=== PATIENT | female | born 1960 | race Caucasian/White ===

== ENCOUNTER 2016-10-20 22:42 | Emergency (ER) | payer BC ==
[2016-10-20 22:57] VITALS: RESP 18
[2016-10-20] MEDS ORDERED: OXYMETAZOLINE 0.05% NASL SPRAY 15 ML NASAL STA (23:21)
--- NOTE | 2016-10-20 23:23 | ED ---
General Adult HPI - General Chief complaint: ENT Stated complaint: nose bleed Time Seen by Provider: 10/20/16 23:00 Source: patient, RN notes reviewed Mode of arrival: ambulatory Limitations: no limitations - History of Present Illness Initial comments: Patient is a pleasant 56-year-old female presenting to the emergency Department with complaints of epistaxis. Onset was around 4:00 while blowing her nose. Patient has had intermittent bleeding since that time. No lightheadedness or dyspnea or weakness. No history of chronic nosebleeds. No bleeding from other areas. Patient denies any trauma. Patient does not take blood thinners. - Related Data Home Medications Medication Instructions Recorded Confirmed ALPRAZolam [Xanax] 0.25 mg PO BID PRN 10/20/16 10/20/16 Atorvastatin [Lipitor] 40 mg PO HS 10/20/16 10/20/16 Cetirizine HCl [Zyrtec] 10 mg PO DAILY 10/20/16 10/20/16 Ergocalciferol (Vitamin D2) 50,000 unit PO SA 10/20/16 10/20/16 [Vitamin D2] Fenofibrate Nanocrystallized 145 mg PO Q48H 10/20/16 10/20/16 [[place]] Levothyroxine Sodium [Synthroid] 100 mcg PO DAILY 10/20/16 10/20/16 Lisinopril-Hctz 20-25 mg 1 tab PO DAILY 10/20/16 10/20/16 [Zestoretic 20-25] Metoprolol Tartrate [Lopressor] 25 mg PO BID 10/20/16 10/20/16 Sodium Chloride [[place]] 1 spray EA NOSTRIL DAILY PRN 10/20/16 10/20/16 Vitamin B Complex 1 cap PO DAILY 10/20/16 10/20/16 Previous Rx's Medication Instructions Recorded Cephalexin [Keflex] 250 mg PO Q8HR #15 capsule 10/21/16 Allergies Allergy/AdvReac Type Severity Reaction Status Date / Time codeine Allergy Dyspnea Verified 10/20/16 23:08 morphine Allergy Dyspnea Verified 10/20/16 23:08 Review of Systems ROS Statement: Those systems with pertinent positive or pertinent negative responses have been documented in the HPI. ROS Other: All systems not noted in ROS Statement are negative. Constitutional: Denies: fever Eyes: Denies: eye pain ENT: Reports: epistaxis. Denies: ear pain Respiratory: Denies: dyspnea Cardiovascular: Denies: chest pain Endocrine: Denies: fatigue Gastrointestinal: Denies: abdominal pain Genitourinary: Denies: dysuria Musculoskeletal: Denies: back pain Skin: Denies: rash Neurological: Denies: headache Past Medical History Past Medical History: Hyperlipidemia, Hypertension, Thyroid Disorder History of Any Multi-Drug Resistant Organisms: None Reported Past Surgical History: Hysterectomy Past Psychological History: No Psychological Hx Reported Smoking Status: Former smoker Past Alcohol Use History: None Reported Past Drug Use History: None Reported General Exam Limitations: no limitations General appearance: alert, in no apparent distress Head exam: Present: atraumatic Eye exam: Present: normal appearance, PERRL ENT exam: Present: normal oropharynx, other (Minimal blood left anterior nares.) Neck exam: Present: normal inspection Respiratory exam: Present: normal lung sounds bilaterally Cardiovascular Exam: Present: regular rate, normal rhythm GI/Abdominal exam: Present: soft. Absent: tenderness Extremities exam: Present: normal inspection Neurological exam: Present: alert Psychiatric exam: Present: normal affect, normal mood Skin exam: Absent: rash Course Vital Signs 10/20/16 10/21/16 22:53 00:13 Temperature 98.0 F 97.3 F L Pulse Rate 104 H 89 Respiratory 18 18 Rate Blood Pressure 172/77 144/78 O2 Sat by Pulse 100 97 Oximetry - Reevaluation(s) Reevaluation #1: 10/20/16 23:22 Patient strongly requests cautery. Procedures - Procedures Initial comment: Epistaxis: Left nares had mild blood. Afrin sprayed and silver nitrate cautery. Despite this patient still had minimal bleeding. Unable to identify site. Posterior Rhino Rocket placed with hemostasis. Disposition Clinical Impression: Posterior epistaxis Disposition: HOME SELF-CARE Condition: Stable Instructions: Nosebleed (ED) Additional Instructions: Please follow-up with ENT in 3-5 days for packing removal and reevaluation. Return for bleeding, bleeding from other sites, worsening symptoms or other concerns. Prescriptions: Cephalexin [Keflex] 250 mg PO Q8HR #15 capsule Referrals: Lula Mart MD [Primary Care Provider] - 1-2 days Torey Helton DO [Doctor of Osteopathic Medicine] - 1-2 days Time of Disposition: 00:20
[2016-10-21 00:14] VITALS: BP 144/78; PULSE 89; TEMP 97.3
[2016-10-21] MEDS ORDERED: ONDANSETRON ODT 4 MG TAB PO STA (00:20)
== END 2016-10-21 00:35 | disposition home or self-care (01) ==
LOC: EC 22:42
DX: R04.0 Epistaxis (principal); E78.5 Hyperlipidemia, unspecified; I10 Essential (primary) hypertension; E07.9 Disorder of thyroid, unspecified; Z87.891 Personal history of nicotine dependence; Z79.899 Other long term (current) drug therapy; Z88.5 Allergy status to narcotic agent
CPT/HCPCS: 30905; 99283

== ENCOUNTER → 2018-03-21 | Outpatient (CLI) | payer OTHER ==
--- NOTE | 2018-03-21 13:56 | XR ---
EXAMINATION TYPE: XR cervical spine comp DATE OF EXAM: 03/21/2018 COMPARISON: NONE HISTORY: pain TECHNIQUE: Four views are submitted. FINDINGS: The odontoid is intact. There are no compression deformities. The prevertebral soft tissue structur es are within normal limits. Calcification the soft tissue the left neck likely related to carotid a rteries. There is loss of the normal cervical lordosis with multilevel degenerative disc disease, hyp ertrophic changes and facet arthropathy. 2 mm retrolisthesis of C5 relative to C6, C2 relative to C3, C3 relative to C4, and C4 relative to C5. Multilevel foraminal encroachment suggested. IMPRESSION: 1. Loss the normal cervical lordosis with multilevel degenerative disc disease and facet arthropathy. Recommend follow-up MRI with multilevel foraminal encroachment noted as well as suspected multilevel anterolisthesis as discussed above.
--- NOTE | 2018-03-21 13:57 | XR ---
EXAMINATION TYPE: XR shoulder complete LT DATE OF EXAM: 03/21/2018 COMPARISON: NONE HISTORY: Pain TECHNIQUE: Three views are submitted. FINDINGS: The osseous structures are intact. There is no acute fracture or dislocation. Arthropathy of the AC joint IMPRESSION: 1. No acute process.
== END | disposition home or self-care (01) ==
LOC: RADXRYALE 13:19
PROVIDERS: ATTEND Internal Medicine
DX: M54.2 Cervicalgia (principal); M25.512 Pain in left shoulder
CPT/HCPCS: 72050

== ENCOUNTER → 2020-05-01 | Outpatient (CLI) | payer MEDICAID, OTHER | END | disposition home or self-care (01) | LOC: LABWHC1 08:24 | PROVIDERS: ATTEND Internal Medicine | DX: J40 Bronchitis, not specified as acute or chronic (principal) | CPT/HCPCS: U0003; C9803 ==

== ENCOUNTER → 2020-07-11 | Outpatient (CLI) | payer MEDICAID ==
--- NOTE | 2020-07-12 10:46 | ECHOF ---
Referral Reason:R01.1 Cardiac Murmur MEASUREMENTS -------- HEIGHT: 160.0 cm WEIGHT: 80.3 kg BP: RVIDd: 2.8 cm (< 3.3) IVSd: 0.7 cm (0.6 - 1.1) LVIDd: 5.1 cm (3.9 - 5.3) LVPWd: 1.1 cm (0.6 - 1.1) IVSs: 1.0 cm LVIDs: 3.5 cm LVPWs: 1.2 cm LA Diam: 4.0 cm (2.7 - 3.8) LAESV Index (A-L): 24.19 ml/m Ao Diam: 2.4 cm (2.0 - 3.7) AV Cusp: 1.6 cm (1.5 - 2.6) MV EXCURSION: 18.048 mm (> 18.000) MV EF SLOPE: 95 mm/s (70 - 150) EPSS: 0.3 cm MV E Kendall: 0.64 m/s MV DecT: 213 ms MV A Kendall: 0.70 m/s MV E/A Ratio: 0.92 RAP: 5.00 mmHg RVSP: 22.18 mmHg FINDINGS -------- Sinus rhythm. This was a technically adequate study. The left ventricular size is normal. There is mild concentric left ventricular hypertrophy. Overa ll left ventricular systolic function is normal with, an EF between 55 - 60 %. The diastolic fillin g pattern is normal for the age of the patient 7.81. The right ventricle is normal in size. Normal LA size by volume 22+/-6 ml/m2. The right atrial size is normal. The aortic valve is trileaflet, and appears structurally normal. No aortic stenosis or regurgitation. The mitral valve is normal. Mild mitral regurgitation is present. The tricuspid valve appears structurally normal. Mild tricuspid regurgitation present. Right vent ricular systolic pressure is normal at < 35 mmHg. There is no pulmonic regurgitation present. The aortic root size is normal. There is no pericardial effusion. CONCLUSIONS -------- 1. There is mild concentric left ventricular hypertrophy. 2. Overall left ventricular systolic function is normal with, an EF between 55 - 60 %. 3. Normal LA size by volume 22+/-6 ml/m2. 4. The aortic valve is trileaflet, and appears structurally normal. No aortic stenosis or regurgitati on. 5. Mild mitral regurgitation is present. 6. Mild tricuspid regurgitation present. GUT DROPPER: Leta Martinez RDCS
== END | disposition home or self-care (01) ==
LOC: RADECHMAIN 12:38
PROVIDERS: ATTEND Internal Medicine
DX: I08.1 Rheumatic disorders of both mitral and tricuspid valves (principal)
CPT/HCPCS: 93306

== ENCOUNTER → 2020-07-16 | Outpatient (CLI) | payer MEDICAID ==
--- NOTE | 2020-08-12 10:36 | MM ---
Reason for exam: screening (asymptomatic). Last mammogram was performed 5 years ago. History: Patient is postmenopausal. Physical Findings: A clinical breast exam by your physician is recommended on an annual basis and results should be correlated with mammographic findings. MG 3D Screening Mammo W/Cad Bilateral CC and MLO view(s) were taken. Prior study comparison: July 02, 2015, mammogram. September 23, 2012, mammogram. The breast tissue is heterogeneously dense. This may lower the sensitivity of mammography. Central left CC asymmetric density does not persist on 3D. No significant changes when compared with prior studies. ASSESSMENT: Benign, BI-RAD 2 RECOMMENDATION: Routine screening mammogram of both breasts in 1 year.
== END | disposition home or self-care (01) ==
LOC: RADMAMWWP 11:05
PROVIDERS: ATTEND Internal Medicine
DX: Z12.31 Encounter for screening mammogram for malignant neoplasm of breast (principal)
CPT/HCPCS: 77063; 77067

== ENCOUNTER 2021-07-25 12:49 | Emergency (ER) | payer MEDICAID ==
[2021-07-25 14:55] VITALS: TEMP 98.4
--- NOTE | 2021-07-25 15:11 | XR ---
EXAMINATION TYPE: XR Hip Complete LT DATE OF EXAM: 07/25/2021 COMPARISON: NONE HISTORY: Pain TECHNIQUE: 2 views submitted FINDINGS: There is no evidence of erosive change or acute fracture. Mild arthropathy and hypertrophic change of the acetabulum. IMPRESSION: 1. Arthropathy correlate for femoral acetabular impingement. No definite acute fracture. There is a s light deformity of the superior margin of the report femoral neck. If there is history of trauma kecia elate with CT scan..
[2021-07-25] MEDS ORDERED: KETOROLAC 15 MG/ML 1 ML VIAL IM STA (18:25)
--- NOTE | 2021-07-25 18:32 | ED ---
General Adult HPI - General Chief complaint: Extremity Injury, Lower Stated complaint: Hip pain Time Seen by Provider: 07/25/21 18:03 Source: patient Mode of arrival: ambulatory Limitations: no limitations - History of Present Illness Initial comments: 61-year-old female presents to the emergency room for a chief complaint left hip pain. Patient states about 3 weeks ago she went to stand up and felt a pop in her hip. Patient states the pain wraps around her groin and through the side of her hip. States it is painful to walk on. States sometimes pain shoots down to her foot.Patient has no other complaints at this time including shortness of breath, chest pain, abdominal pain, nausea or vomiting, headache, or visual changes. - Related Data Home Medications Medication Instructions Recorded Confirmed ALPRAZolam [Xanax] 0.25 mg PO BID 10/20/16 07/25/21 Cetirizine HCl [Zyrtec] 10 mg PO DAILY 10/20/16 07/25/21 Ergocalciferol (Vitamin D2) 50,000 unit PO SA 10/20/16 07/25/21 [Vitamin D2] Lisinopril-Hctz 20-25 mg 1 tab PO DAILY 10/20/16 07/25/21 [Zestoretic 20-25] Metoprolol Tartrate [Lopressor] 25 mg PO BID 10/20/16 07/25/21 Levothyroxine Sodium [Synthroid] 125 mcg PO DAILY 07/25/21 07/25/21 Pravastatin Sodium [Pravachol] 40 mg PO DAILY 07/25/21 07/25/21 Previous Rx's Medication Instructions Recorded HYDROcodone/APAP 5-325MG [[place] 1 tab PO Q6HR PRN #10 tab 07/25/21 5-325] Allergies Allergy/AdvReac Type Severity Reaction Status Date / Time codeine Allergy Dyspnea Verified 07/25/21 19:05 morphine Allergy Dyspnea Verified 07/25/21 19:05 Review of Systems ROS Statement: Those systems with pertinent positive or pertinent negative responses have been documented in the HPI. ROS Other: All systems not noted in ROS Statement are negative. Past Medical History Past Medical History: Hyperlipidemia, Hypertension, Thyroid Disorder History of Any Multi-Drug Resistant Organisms: None Reported Past Surgical History: Hysterectomy Past Psychological History: No Psychological Hx Reported Smoking Status: Former smoker Past Alcohol Use History: None Reported Past Drug Use History: None Reported General Exam Limitations: no limitations General appearance: alert, in no apparent distress Head exam: Present: atraumatic Eye exam: Present: normal appearance, PERRL, EOMI. Absent: scleral icterus, conjunctival injection ENT exam: Present: normal exam, mucous membranes moist Neck exam: Present: normal inspection, full ROM. Absent: tenderness Respiratory exam: Present: normal lung sounds bilaterally. Absent: respiratory distress, wheezes Cardiovascular Exam: Present: regular rate, normal rhythm, normal heart sounds GI/Abdominal exam: Present: soft, normal bowel sounds. Absent: distended, tenderness Extremities exam: Present: tenderness (Mild tenderness of the lateral left hip.), normal capillary refill (Capillary refill less than 2 seconds left lower extremity, DP pulse 2+.), other (sensation intact of lower extremity.). Absent: full ROM (90 flexion of the left hip, extension to a neutral position.) Course Vital Signs 07/25/21 14:51 Temperature 98.4 F Pulse Rate 77 Respiratory 16 Rate Blood Pressure 131/84 O2 Sat by Pulse 100 Oximetry Medical Decision Making - Medical Decision Making vitals are stable. HPI and physical exam as documented. CT is recommended after x-ray shows arthropathy correlated for femoral acetabular impingement as well as a slight deformity of the superior margin of the femoral neck.CT showed no evidence of fracture or dislocation but there are mild osteoarthritic changes of the left hip with [place] deformity of the femoral head. Patient given Toradol. Does not want any other pain medication here in the emergency room. We will send her home with a small prescription for pain medication. She will follow up with orthopedics, referral given. She was given a shot for crutches. She will return here for any worsening symptoms. Disposition Clinical Impression: Hip pain, Osteoarthritis of left hip Narrative: CAM deformity Disposition: HOME SELF-CARE Condition: Good Instructions (If sedation given, give patient instructions): Hip Pain (ED) Additional Instructions: Please take Tylenol for pain. If pain is severe take [place] but do not drive or operate machinery while taking this. Call orthopedics first thing Wednesday morning to follow up. Return to the emergency room for any worsening symptoms. Prescriptions: HYDROcodone/APAP 5-325MG [[place] 5-325] 1 tab PO Q6HR PRN #10 tab PRN Reason: Pain Is patient prescribed a controlled substance at d/c from ED?: Yes When asked, does pt state using other controlled substances?: No If prescribed controlled substance>3 days was MAPS reviewed?: Prescribed <3 Days If opioid is for acute pain is fill amount 7 days or less?: Yes If Rx opioid, was Start Talking consent form obtained?: Yes Referrals: Lula Mart MD [Primary Care Provider] - 1-2 days Hannah Rojas DO [Doctor of Osteopathic Medicine] - 1-2 days Time of Disposition: 19:45
--- NOTE | 2021-07-25 19:12 | CT ---
EXAMINATION TYPE: CT hip LT wo con CT DLP: 844.4 mGycm, Automated exposure control for dose reduction was used. DATE OF EXAM: 07/25/2021 7:03 PM COMPARISON: Radiograph same day. CLINICAL INDICATION:Female, 61 years old with history of pain, left hip pain, no injury TECHNIQUE: Axial images were obtained of the left hip without the use of IV contrast. Additional cor onal and sagittal reformatted images and soft tissue and bone window were obtained for review. 3-D re construction was created on a separate workstation. FINDINGS: There is no evidence of fracture, subluxation, or dislocation. Minimal superior acetabular sclerosis noted. CAM deformity of the femoral noted. No significant soft tissue swelling or joint eff usion is identified. No focal muscular atrophy or edema is identified. No radiopaque foreign body nica ntified. Multilevel degenerative disc disease changes are seen throughout the visualized spine. IMPRESSION: 1. No evidence of fracture or dislocation. 2. Mild osteoarthritic changes of the left hip with CAM deformity of the femoral head.
[2021-07-25 19:59] VITALS: BP 128/81; PULSE 78; RESP 18
== END 2021-07-25 19:57 | disposition home or self-care (01) ==
LOC: EC 12:49
DX: M16.12 Unilateral primary osteoarthritis, left hip (principal); E78.5 Hyperlipidemia, unspecified; I10 Essential (primary) hypertension; E07.9 Disorder of thyroid, unspecified; Z88.5 Allergy status to narcotic agent; Z90.710 Acquired absence of both cervix and uterus; Z87.891 Personal history of nicotine dependence
CPT/HCPCS: 99284; 96372; 73502; 73700; J1885

== ENCOUNTER → 2021-08-06 | Outpatient (CLI) | payer MEDICAID | END | disposition home or self-care (01) | LOC: LABWHC1 12:07 | PROVIDERS: ATTEND Internal Medicine | DX: Z20.822 Contact with and (suspected) exposure to COVID-19 (principal); R51.9 Headache, unspecified; R07.0 Pain in throat | CPT/HCPCS: U0003; C9803 ==

== ENCOUNTER → 2021-09-05 | Outpatient (CLI) | payer MEDICAID ==
[2021-09-05 15:28] LABS: Appearance,Urine Clear (Clear); Bilirubin,Urine Negative (Negative); Blood,Urine Negative (Negative); Color,Urine Yellow; Glucose,Urine (UA) Negative (Negative); Ketones,Urine Negative (Negative); Leukocyte Esterase,Urine Negative (Negative); Nitrite,Urine Negative (Negative); Protein,Urine Negative (Negative); Specific Gravity,Urine 1.018 (1.001-1.035); Urobilinogen,Urine <2.0 mg/dL (<2.0)
[2021-09-05 16:08] LABS: INR 0.9 (<1.2); Partial Thromboplastin Time 22.6 sec (22.0-30.0); Prothrombin Time 10.2 sec (9.0-12.0)
[2021-09-05 18:05] LABS: HCT 37.2 % (37.2-46.3); HGB 12.1 g/dL (12.0-15.0); MCH 29.4 pg (27.0-32.0); MCHC 32.5 g/dL (32.0-37.0); MCV 90.5 fL (80.0-97.0); Mean Platelet Volume 11.1 fL (9.5-12.2); Platelet Count 278 X 10*3/uL (140-440); RBC 4.11 X 10*6/uL (4.10-5.20); RDW 11.4 % (11.5-14.5); WBC 8.59 X 10*3/uL (4.50-10.00)
[2021-09-05 18:53] LABS: African American GFR (CKD) 115.6 (60.0-200.0); Albumin 4.8 g/dL (3.8-4.9); Albumin/Globulin Ratio 2.4 (1.60-3.17); Anion Gap 14.9 mmol/L (10.00-18.00); BUN/Creat Ratio 27.17 Ratio (12.00-20.00); Blood Urea Nitrogen 16.3 mg/dL (9.0-27.0); Calcium 9.8 mg/dL (8.7-10.3); Carbon Dioxide 23.1 mmol/L (20.0-27.5); Non-African American GFR(CKD) 99.8 (60.0-200.0); Potassium 4.1 mmol/L (3.5-5.5); Total Bilirubin 0.4 mg/dL (0.30-1.20); Total Protein 6.8 g/dL (6.2-8.2)
== END | disposition home or self-care (01) ==
LOC: LABWHC1 13:37
PROVIDERS: ATTEND Orthopaedic Surgery
DX: Z01.818 Encounter for other preprocedural examination (principal); M16.12 Unilateral primary osteoarthritis, left hip
CPT/HCPCS: 36415; 80053; 81003; 85027; 85610; 85730; 87070; 93005

== ENCOUNTER → 2021-11-10 | Outpatient (CLI) | payer MEDICAID ==
[2021-11-10 12:48] LABS: INR 0.9 (<1.2); Partial Thromboplastin Time 24.1 sec (22.0-30.0); Prothrombin Time 10.1 sec (9.0-12.0)
[2021-11-10 18:07] LABS: HCT 37.5 % (37.2-46.3); HGB 12.5 g/dL (12.0-15.0); MCH 29.8 pg (27.0-32.0); MCHC 33.3 g/dL (32.0-37.0); MCV 89.5 fL (80.0-97.0); Mean Platelet Volume 10.5 fL (9.5-12.2); NRBC Per 100 WBC 0 /100 WBCS (0.0-0.0); Platelet Count 268 X 10*3/uL (140-440); RBC 4.19 X 10*6/uL (4.10-5.20); RDW 11.5 % (11.5-14.5); WBC 8.69 X 10*3/uL (4.50-10.00)
[2021-11-10 20:17] LABS: African American GFR (CKD) 115.6 (60.0-200.0); Albumin 4.9 g/dL (3.8-4.9); Albumin/Globulin Ratio 2.13 (1.60-3.17); Anion Gap 16.1 mmol/L (10.00-18.00); BUN/Creat Ratio 24.5 Ratio (12.00-20.00); Blood Urea Nitrogen 14.7 mg/dL (9.0-27.0); Calcium 9.9 mg/dL (8.7-10.3); Carbon Dioxide 20.9 mmol/L (20.0-27.5); Globulin 2.3 g/dL (1.6-3.3); Non-African American GFR(CKD) 99.8 (60.0-200.0); Potassium 3.6 mmol/L (3.5-5.5); Total Bilirubin 0.4 mg/dL (0.30-1.20); Total Protein 7.2 g/dL (6.2-8.2)
[2021-11-10 20:44] LABS: Appearance,Urine Clear (Clear); Bilirubin,Urine Negative (Negative); Blood,Urine Negative (Negative); Color,Urine Yellow (Yellow); Ketones,Urine Negative (Negative); Nitrite,Urine Negative (Negative); Specific Gravity,Urine 1.012 (1.001-1.030); Urobilinogen,Urine 0.2 (0.2,1.0)
== END | disposition home or self-care (01) ==
LOC: LABPAT 11:01
PROVIDERS: ATTEND Orthopaedic Surgery
DX: Z01.812 Encounter for preprocedural laboratory examination (principal)
CPT/HCPCS: 80053; 81003; 85027; 85610; 85730; 87070

== ENCOUNTER 2021-11-21 09:16 | Day surgery (SDC) | payer MEDICAID ==
[2021-11-19 15:41] VITALS: BMI 31.8
[~2021-11-21 09:16] MED LIST: ACETAMINOPHEN TAB 500 MG TAB PO PRN; DEXAMETHASONE SOD PHOSPHATE 10 MG/ML 1 ML VIAL IV PRN; DOCUSATE 100 MG CAP PO PRN; FAMOTIDINE 20 MG/2 ML VIAL IVP PRN; KETOROLAC 15 MG/ML 1 ML VIAL IVP PRN; LACTATED RINGERS 1,000 ML IV SCH; MIDAZOLAM 2 MG/2 ML VIAL IV PRN; ONDANSETRON 4 MG/2 ML VIAL IVP PRN; TRANEXAMIC ACID 1,000 MG in SODIUM CHLORIDE 0.9% 100 ML IVPB ONE; TRANEXAMIC ACID IN NACL,ISO-OS 1,000 MG in SALINE 1 100ML.BAG IVPB PRN; oxyCODONE ER 10 MG TAB.ER.12H PO PRN
[2021-11-21 10:24] LABS: Glucose,Whole Blood 113 mg/dL (75-99)
[2021-11-21] MEDS ORDERED: DEXAMETHASONE SOD PHOSPHATE 4 MG/ML 1 ML VIAL IVP ONE (10:29)
[2021-11-21] MEDS ORDERED: MIDAZOLAM 2 MG/2 ML VIAL ONE (11:00)
[2021-11-21] MEDS ORDERED: PROPOFOL 10 MG/ML 20 ML VIAL IV ONE (11:00)
[2021-11-21] MEDS ORDERED: NEOSTIGMINE 1 MG/ML 10 ML VIAL ONE (11:00)
[2021-11-21] MEDS ORDERED: PHENYLEPHRINE-0.9% NACL SYG 1,000 MCG/10 ML SYRINGE ONE (11:00)
[2021-11-21] MEDS ORDERED: TRANEXAMIC ACID IN NACL,ISO-OS 1,000 MG/100 ML BAG ONE (11:00)
[2021-11-21] MEDS ORDERED: fentaNYL (PF) 50 MCG/ML 2 ML AMP ONE (11:00)
[2021-11-21] MEDS ORDERED: LIDOCAINE 1% INJ 10MG/ML (20 ML MDV) ONE (11:00)
[2021-11-21] MEDS ORDERED: GLYCOPYRROLATE 0.2 MG/ML 2 ML VIAL ONE (11:00)
[2021-11-21] MEDS ORDERED: SUCCINYLCHOLINE CHLORIDE 100 MG/5 ML SYR IV ONE (11:00)
[2021-11-21] MEDS ORDERED: ROCURONIUM 10 MG/ML (5 ML VIAL) IV ONE (11:00)
[2021-11-21] MEDS: ROPIVACAINE/EPI/CLONIDINE/KET 50 ML SYRINGE MISCELLANE PRN ×2 (11:09→13:02)
--- NOTE | 2021-11-21 13:28 | XR ---
EXAMINATION TYPE: XR Hip Limited LT DATE OF EXAM: 11/21/2021 COMPARISON: NONE HISTORY: Postop TECHNIQUE: One view submitted. FINDINGS: There is postsurgical change in near anatomic alignment. There is soft tissue edema and emphysema. IMPRESSION: 1. Postoperative change. Appears in near-anatomic alignment.
--- NOTE | 2021-11-21 13:29 | FL ---
EXAMINATION TYPE: FL guidance operating room DATE OF EXAM: 11/21/2021 HISTORY: Fluoroscopy time 1 minute and 15 seconds of fluoroscopy provided. IMPRESSION: 1. Fluoroscopy time.
--- NOTE | 2021-11-21 13:39 | P.OP ---
Date of Procedure: 11/21/21 Preoperative Diagnosis: Left hip avascular necrosis Postoperative Diagnosis: Left hip avascular necrosis Procedure(s) Performed: Left direct anterior total hip arthroplasty Implants: 1. Left Hand Trident II 52 mm cup 2. Stef Accolade II size #3 127-deg Femoral Stem 3. Dual mobility Head 42-OD, 28-ID -4 mm Anesthesia: GETA Surgeon: Mark Anthony Willson Vp Production #1: Cristopher Scherer Estimated Blood Loss (ml): 200 IV fluids (ml): 1,200 Pathology: other (Femoral head to pathology) Condition: stable Disposition: PACU Indications for Procedure: The patient developed avascular necrosis of the left femoral head with collapse. She had intractable pain and difficulty walking. She had both x-ray and MRI findings showing avascular necrosis and collapse. I recommended a total hip arthroplasty. I had a long discussion with the patient in the office on the potential risks and complications of an elective total hip replacement through a direct anterior approach. Risks discussed include, but are certainly not limited to, risks from anesthesia, superficial infection requiring local wound care or antibiotics, deep roxanne-prosthetic joint infection and the treatment required to eradicate infection, intraoperative fracture, postoperative periprosthetic fracture, damage to local blood vessels or nerves particularly the lateral femoral cutaneous nerve, delayed wound healing requiring local wound care or possibly surgical debridement, hip dislocation, leg length discrepancy, soft tissue irritation around the total hip implant such as iliopsoas tendinitis or trochanteric bursitis, wear and osteolysis from the implants, squeaking or audible noises, groin pain, thigh pain, heterotopic ossification, stiffness, aseptic loosening of the implants, dissatisfaction with surgical outcome, need for revision surgery, DVT, PE, swelling of the operative extremity, acute coronary event, stroke, failure to thrive, and possibly loss of life or limb. The patient understands that while these are the most common complications after an elective hip replacement there are certainly other less common complications possible. They were given ample time to ask questions regarding the potential complications of a hip replacement. Following our discussion the patient provided their verbal and written consent to go forward with an elective total hip replacement. Operative Findings: Avascular necrosis with collapse of the left femoral head. There was a large delaminated piece of cartilage in the hip joint and a large effusion. Description of Procedure: The patient was identified in the preoperative holding area and the correct hip was marked with my initials. I reviewed the procedure and consent with the patient. All of their questions were answered. The patient was then brought back into the operating room by anesthesia. While on the [facility] anesthesia was administered by the anesthesia team. Preoperative antibiotics and tranexamic acid were also given. After the patient was under anesthesia I examined their ankles to determine their preoperative leg length discrepancy. The skin over the anterior aspect of the hip was shaved to remove hair over the site of planned incision. Both feet and ankles were padded with webril and boots for the [place] were applied. The patient was then carefully transferred onto the [place] table. A perineal post was immediately placed. The arms were placed on arm holders and were well-padded. Both boots were secured to the spars on the [place] table. The patient was positioned so that the pelvis was centered over the post. Nonsterile drapes were applied. A timeout was performed identifying the correct patient, operative extremity, and procedure. At this point fluoroscopy was brought in to take preoperative images of the pelvis and operative hip. Using the standing AP pelvis from the office as a template, a comparable image was obtained with fluoroscopy. A metallic bar was used to create a bi-ischial line for use as a reference to leg length adjustments during the procedure. Global offset was also measured on both the operative and nonoperative leg. Fluoroscopy was then brought out and a pre-scrub using a chlorhexidine scrub brush was performed. The operative limb was then prepped and draped in the standard sterile fashion. An anterior longitudinal incision was made lateral and distal to the ASIS. The skin and subcutaneous tissues were incised sharply. The underlying tensor fascia was identified and incised in its midportion. The fascia was dissected free from the underlying muscle and the muscle belly was retracted. A blunt tipped cobra retractor was placed over the superior neck under the muscle fibers of the gluteus minimus. The deep enveloping fascia of the tensor was incised. The anterior leash of vessels were then identified and cauterized. The fascia between the rectus and the capsule was then incised and the pre-capsular fat was excised. A second Cobra was placed inferior to the neck. The interval between the rectus and iliocapsularis and the hip capsule was developed and a retractor was placed carefully over the anterior rim of the acetabulum. A T-shaped anterior capsulotomy was performed. The superior capsular leaflet was left in place in the inferior capsular flap was excised. The Cobra retractors were placed intracapsularly. We then made a femoral neck osteotomy according to preoperative and intraoperative templating and confirmed the level of the osteotomy using fluoroscopic imaging. The femoral head was removed, passed off to the back table, and sized. The superior capsular flap was excised. Retractors were placed circumferentially exposing the acetabulum. We then circumferentially debrided the acetabulum free of labrum and osteophytes. On inspection of the femoral head there was a large area of avascular necrosis and collapse. There was a delaminated piece of cartilage in the joint. The pulvinar was removed to fully visualize the cotyloid fossa. We then sequentially reamed to achieve peripheral fit and excellent bleeding subchondral bone. The socket was thoroughly irrigated. The acetabular component was imp acted into the appropriate position using fluoroscopy to guide version, inclination, and depth of insertion taking care to have a comparable image of the AP pelvis to the standing image taken in the office. An excellent press-fit was achieved and final position was confirmed using fluoroscopy. The press fit was augmented with bony cancellus dome screws. The liner was then impacted into the socket. Attention was then turned to the femur. The remnant dorsal lateral capsule was excised. The short external rotators were visible and protected. A bone hook was used to confirm appropriate translation of the trochanter away from the acetabulum. The leg was then extended and adducted and the bone hook was used to elevate the femur for broaching. A box osteotome and blunt tipped canal sound was then utilized to gain access to the femoral canal. We then sequentially broached the femur in appropriate anteversion until excellent torsional stability was achieved. The neck cut was brought flush to the trial broach with a calcar planar. A trial neck and head were then placed onto the broach and the hip was atraumatically reduced under direct visualization. External rotation to 90 was performed to assess stability. Fluoroscopy was brought in. An AP and lateral fluoroscopic image of the proximal femur was obtained to assess position and fill of the trial broach. An AP of the pelvis was then obtained and matched to the preoperative image taken. A bi-ischial bar was then placed and measurements were taken to assess changes in length and offset. The hip was then carefully dislocated, the proximal femur was exposed, and the trial implants were removed. The wound and proximal femur was thoroughly irrigated using sterile saline and pulsatile lavage. The final femoral implant was dispensed and gently tapped into place generating an excellent press-fit. The trunnion was cleansed and the final head was tapped into place to engage the Pike taper. The acetabulum was irrigated and visualized to be free of debris. The hip was carefully reduced. Stability was checked clinically with external rotation to 90 and there was no evidence of instability. Final fluoroscopic images were taken. The wound was then thoroughly irrigated and soaked with a dilute Betadine rinse for 3 minutes. 3 L of sterile saline was irrigated through the wound using pulsatile lavage. Local anesthetic cocktail was injected into the soft tissues around the surgical field. The wound was then closed in layers. A sterile dressing was placed over the surgical incision and drain site. The drapes were taken down and the patient was carefully transferred off of the [place] table. Following removal of the boots the leg lengths felt acceptable. The patient was then taken to recovery room having tolerated the procedure well. Cristopher Scherer PA-C was required as a skilled public aid eligibility assistant for patient positioning, surgical exposure, retraction, placement of implants, and closure of the surgical wound. PLAN: The patient can weight-bear as tolerated on the operative extremity. 2 doses of postoperative antibiotics. DVT prophylaxis with aspirin 81 mg twice a day based on preoperative risk stratification. Physical therapy for gait training.
[2021-11-21] MEDS ORDERED: hydrOXYzine pamoate 25 MG CAP PO PRN (13:40)
[2021-11-21] MEDS ORDERED: HYDROcodone/APAP 5-325MG 1 EACH TAB PO PRN ×2 (13:40)
[2021-11-21] MEDS ORDERED: NALOXONE 0.4 MG/ML 1 ML VIAL IV PRN (13:40)
[2021-11-21] MEDS ORDERED: HYDROmorphone 1 MG/ML 1 ML SYRINGE IVP PRN (13:40)
[2021-11-21] MEDS ORDERED: HYDROmorphone 0.5 MG/0.5 ML SYRINGE IVP PRN ×2 (13:40)
[2021-11-21] MEDS: fentaNYL (PF) 50 MCG/ML 2 ML AMP IV PRN ×2 (14:02→14:09)
[2021-11-21] MEDS ORDERED: LACTATED RINGERS 1,000 ML IV ONE (16:17)
[2021-11-21] MEDS ORDERED: ONDANSETRON 4 MG/2 ML VIAL IVP PRN (17:27)
[2021-11-21] MEDS ORDERED: ATORVASTATIN 20 MG TAB PO SCH (21:00)
[2021-11-21] MEDS ORDERED: SENNOSIDES-DOCUSATE SODIUM 1 EACH TAB PO SCH (21:00)
[2021-11-21] MEDS: ASPIRIN 81 MG PO SCH (21:39)
[2021-11-21] MEDS: ALPRAZolam 0.25 MG TAB PO SCH (21:39)
[2021-11-21] MEDS: METOPROLOL TARTRATE 25 MG TAB PO SCH (21:39)
[2021-11-22 04:38] VITALS: RESP 17
[2021-11-22 04:59] LABS: ALT 21 U/L (4-34); AST 36 U/L (14-36); African American GFR (CKD) >90 (>60 ml/min/1.73 sqM); Albumin 3.8 g/dL (3.5-5.0); Albumin/Globulin Ratio 1.7; Alkaline Phosphatase 40 U/L (38-126); Anion Gap 11 mmol/L; Blood Urea Nitrogen 11 mg/dL (7-17); Calcium 8.7 mg/dL (8.4-10.2); Carbon Dioxide 22 mmol/L (22-30); Chloride 102 mmol/L (98-107); Globulin 2.3 g/dL; Glucose 106 mg/dL (74-99); Non-African American GFR(CKD) >90 (>60 ml/min/1.73 sqM); Sodium 135 mmol/L (137-145); Total Bilirubin 0.6 mg/dL (0.2-1.3); Total Protein 6.1 g/dL (6.3-8.2)
[2021-11-22] MEDS ORDERED: VIT A,C & E-LUTEIN-MINERALS 1 EACH TAB PO SCH (06:30)
[2021-11-22] MEDS ORDERED: LORATADINE 10 MG TAB PO SCH (06:30)
[2021-11-22] MEDS ORDERED: LEVOTHYROXINE 100 MCG TAB PO SCH (06:30)
[2021-11-22 08:26] VITALS: BP 106/65; PULSE 76; TEMP 98.8
[2021-11-22 08:49] LABS: Basophils # (A) 0.04 X 10*3/uL (0.00-0.10); Basophils % (A) 0.3 %; Eosinophils # (A) 0 X 10*3/uL (0.04-0.35); Eosinophils % (A) 0 %; HCT 33.4 % (37.2-46.3); HGB 10.8 g/dL (12.0-15.0); Immature Grans, Automated 0.5 %; Lymphocytes # (A) 0.91 X 10*3/uL (0.90-5.00); Lymphocytes % (A) 6.1 %; MCH 29.8 pg (27.0-32.0); MCHC 32.3 g/dL (32.0-37.0); Mean Platelet Volume 10.3 fL (9.5-12.2); Monocytes # (A) 1.08 X 10*3/uL (0.20-1.00); Monocytes % (A) 7.2 %; NRBC Per 100 WBC 0 /100 WBCS (0.0-0.0); Neutrophils # (A) 12.82 X 10*3/uL (1.80-7.70); Neutrophils % (A) 85.9 %; Platelet Count 257 X 10*3/uL (140-440); RBC 3.63 X 10*6/uL (4.10-5.20); RDW 11.7 % (11.5-14.5); WBC 14.93 X 10*3/uL (4.50-10.00)
[2021-11-22] MEDS: METOPROLOL TARTRATE 25 MG TAB PO SCH (08:58)
[2021-11-22] MEDS: ASPIRIN 81 MG PO SCH (08:58)
[2021-11-22] MEDS: ALPRAZolam 0.25 MG TAB PO SCH (08:58)
--- NOTE | 2021-11-22 09:35 | P.CONS ---
History of Present Illness - Reason for Consult Consult date: 11/22/21 Medical management - Chief Complaint Elective left total hip arthroplasty - History of Present Illness Patient is a 61-year-old female with a known history of hypertension, hyperlipidemia, osteoarthritis, hypothyroidism and previous history of smoking was admitted to hospital for allergic to left total hip arthroplasty. Currently patient does have some soreness in the left thigh but no swelling or throbbing pain. No complaints of chest pain or shortness of breath. No nausea vomiting abdominal pain or diarrhea. Patient was able to get up and walk with a walker. Postoperatively blood pressure is 117/72 and pulse 79 respiration 18 pulse ox 96% on room air. Medicine service was consulted for postoperative management. Laboratory data showed WBC 14.9 hemoglobin 10.8 and platelets 257 neutrophils 12.82 sodium 135 potassium 4.0 chloride 102 bicarb 22 BUN 11 creatinine 0.63 blood sugar is 106 albumin 3.8 [id number] not elevated. Review of Systems Constitutional: Patient denies any fever or chills . No generalized weakness or weight loss. Abdomen: Patient denied nausea vomiting and diarrhea and abdominal pain. Cardiovascular: Patient denies any chest pain or short of breath no palpitations. Respiratory: patient denied any cough is from production. No shortness of breath Neurologic: Patient denied any numbness or tingling headache. Musculoskeletal: Patient denies any complaints of joint swelling or deformity. Skin: Negative Psychiatric: Negative Endocrine: No heat or cold intolerance. No recent weight gain. Genitourinary: No dysuria or hematuria. All other 14 point ROS negative except the above Past Medical History Past Medical History: Hyperlipidemia, Hypertension, Osteoarthritis (OA), Thyroid Disorder Additional Past Medical History / Comment(s): abnorm on recent EKG so surgery was postponed till saw card., testing was wnl per pt., mild macular degeneration, had covid 2 yrs ago-has had jaycee. foot pain & numbness since then History of Any Multi-Drug Resistant Organisms: None Reported Past Surgical History: Hysterectomy Additional Past Surgical History / Comment(s): colonoscopy, benign lymph node removed Past Anesthesia/Blood Transfusion Reactions: No Reported Reaction Smoking Status: Former smoker - Past Family History Father Additional Family Medical History / Comment(s): aneurysm Mother Family Medical History: Cancer Medications and Allergies Home Medications Medication Instructions Recorded Confirmed Type ALPRAZolam [Xanax] 0.25 mg PO BID 10/20/16 11/21/21 History Cetirizine HCl [Zyrtec] 10 mg PO DAILY 10/20/16 11/21/21 History Ergocalciferol (Vitamin D2) 50,000 unit PO SA 10/20/16 11/21/21 History [Vitamin D2] Lisinopril-Hctz 20-25 mg 1 tab PO DAILY 10/20/16 11/21/21 History [Zestoretic 20-25] Metoprolol Tartrate [Lopressor] 25 mg PO BID 10/20/16 11/21/21 History Levothyroxine Sodium [Synthroid] 100 mcg PO DAILY 07/25/21 11/21/21 History Acetaminophen [Tylenol Extra 500 mg PO Q6H PRN 11/19/21 11/21/21 History Strength] Rosuvastatin [Crestor] 10 mg PO HS 11/19/21 11/21/21 History Vit C/E/Zn/Coppr/Lutein/Zeaxan 1 each PO DAILY 11/19/21 11/21/21 History [Preservision Areds 2 Softgel] Aspirin 81 mg PO BID 30 Days #60 tab 11/21/21 Rx Diclofenac Sodium [Voltaren] 75 mg PO BID 30 Days #60 tab 11/21/21 Rx Docusate [Colace] 100 mg PO BID #60 capsule 11/21/21 Rx Docusate [Colace] 100 mg PO BID 30 Days #60 cap 11/21/21 Rx HYDROcodone/APAP 5-325MG [[place] 1 - 2 tab PO Q6HR PRN 40 Days #7 11/21/21 Rx 5-325] tab Omeprazole 40 mg PO DAILY 30 Days #30 cap 11/21/21 Rx Allergies Allergy/AdvReac Type Severity Reaction Status Date / Time codeine Allergy Dyspnea Verified 11/19/21 15:11 morphine Allergy Anaphylaxis Verified 11/19/21 15:11 Physical Exam Vitals: Vital Signs Temp Pulse Pulse Pulse Resp BP BP 11/22/21 07:16 98.8 F 76 17 106/65 11/22/21 02:00 98.5 F 79 17 117/72 11/21/21 19:55 85 131/87 11/21/21 19:40 84 124/80 11/21/21 19:25 81 116/74 11/21/21 19:10 90 118/76 11/21/21 18:55 86 107/71 11/21/21 18:40 81 116/77 11/21/21 18:25 76 120/78 11/21/21 18:10 81 126/82 11/21/21 17:55 76 128/83 11/21/21 17:40 80 128/80 11/21/21 17:25 87 124/84 11/21/21 17:10 80 123/80 11/21/21 16:56 97.7 F 80 19 119/73 11/21/21 16:00 98.4 F 67 16 100/60 11/21/21 15:30 68 16 98/56 11/21/21 14:54 67 14 100/58 11/21/21 14:39 81 18 103/62 11/21/21 14:24 79 16 94/57 11/21/21 14:09 81 14 96/58 11/21/21 13:54 84 18 108/65 11/21/21 13:39 99.5 F 73 14 110/62 11/21/21 10:14 98.3 F 74 16 139/76 Pulse Ox 11/22/21 07:16 95 11/22/21 02:00 96 11/21/21 19:55 99 11/21/21 19:40 99 11/21/21 19:25 98 11/21/21 19:10 98 11/21/21 18:55 98 11/21/21 18:40 98 11/21/21 18:25 98 11/21/21 18:10 98 11/21/21 17:55 98 11/21/21 17:40 98 11/21/21 17:25 98 11/21/21 17:10 97 11/21/21 16:56 98 11/21/21 16:00 98 11/21/21 15:30 97 11/21/21 14:54 98 11/21/21 14:39 97 11/21/21 14:24 97 11/21/21 14:09 98 11/21/21 13:54 98 11/21/21 13:39 98 11/21/21 10:14 97 Intake and Output 11/21/21 11/22/21 11/22/21 22:59 06:59 14:59 Intake Total 625 1300 Balance 625 1300 Intake: IV 525 Intake, IV Titration 1000 Amount Tranexamic Acid 1,000 mg 900 In Sodium Chloride 0.9% 100 ml @ 200 mls/hr IVPB ONCE ONE Rx#:[id number] ceFAZolin 2 gm In Sodium 100 Chloride 0.9% 50 ml @ 100 mls/hr IVPB Q8H [facility] Rx#: [id number] Oral 100 300 Other: # Voids 1 3 Weight 80.1 kg PHYSICAL EXAMINATION: Patient is lying in the bed comfortably, no acute distress, awake alert and oriented.. HEENT: Normocephalic. Neck is supple. Pupils reactive. Nostrils clear. Oral cavity is moist. Neck reveals no JVD, carotid bruits, or thyromegaly. CHEST EXAMINATION: Trachea is central. Symmetrical expansion. Lung perez clear to auscultation and percussion. CARDIAC: Normal S1, S2 with no gallops. No murmurs ABDOMEN: Soft. Bowel sounds normal. No organomegaly. No abdominal bruits. Extremities: reveal no edema. No clubbing or cyanosis Neurologically awake, alert, oriented x3 with well-coordinated movements. No focal deficits noted Skin: No rash or skin lesions. Psychiatric: Coperative. Nonsuicidal Musculoskeletal: No joint swelling or deformity. Left hip surgical site intact. Normal range of motion. Results CBC & Chem 7: 11/22/21 04:06 11/22/21 04:06 Labs: Abnormal Lab Results - Last 24 Hours (Table) 11/21/21 11/22/21 11/22/21 Range/Units 10:15 04:06 04:06 WBC 14.93 H (4.50-10.00) X 10*3/uL RBC 3.63 L (4.10-5.20) X 10*6/uL Hgb 10.8 L (12.0-15.0) g/dL Hct 33.4 L (37.2-46.3) % Immature Gran # 0.08 H (0.00-0.04) X 10*3/uL Neutrophils # 12.82 H (1.80-7.70) X 10*3/uL Monocytes # 1.08 H (0.20-1.00) X 10*3/uL Eosinophils # 0 L (0.04-0.35) X 10*3/uL Sodium 135 L (137-145) mmol/L Glucose 106 H (74-99) mg/dL POC Glucose (mg/dL) 113 H (75-99) mg/dL Total Protein 6.1 L (6.3-8.2) g/dL Assessment and Plan Assessment: S/p left total knee arthroplasty postoperative day 1 Mild leukocytosis likely postoperatively inflammatory reaction. Left hip avascular necrosis failed outpatient conservative therapy. Osteoarthritis Hypotension. Patient is currently hypotensive and blood pressure medications on hold. Hyperlipidemia Hypothyroidism DVT prophylaxis patient is being continued on aspirin 81 mg twice daily GI prophylaxis Plan: Patient will be continued pain management, bowel regimen. Increase incentive spirometry and ambulation. Continue with GI and DVT prophylaxis. Blood pressure medications on hold at this time. Patient is on hydrochlorothiazide/lisinopril. Continue with other home medications and follow-up closely. Thank you for consulting internal medicine service.
--- NOTE | 2021-11-22 10:55 | P.DS ---
Providers Date of admission: 11/21/2021 Expected date of discharge: 11/22/21 Attending physician: Mark Anthony Willson Consults: 11/21/21 13:40 Consult Physician Routine Consulting Provider: Kirstin Anderson Consult Reason/Comments: medical management Do you want consulting provider notified?: Yes Primary care physician: Lula Mart - Discharge Diagnosis(es) (1) S/P total left hip arthroplasty Current Visit: Yes Status: Acute (2) Avascular necrosis of bone of left hip Current Visit: Yes Status: Acute (3) Left hip pain Current Visit: Yes Status: Acute (4) Hypertension Current Visit: Yes Status: Acute (5) Hyperlipidemia Current Visit: Yes Status: Acute (6) Hypothyroidism Current Visit: Yes Status: Acute (7) Obesity (BMI 30.0-34.9) Current Visit: Yes Status: Acute Hospital Course: This is a pleasant 61-year-old female who presented with left hip avascular necrosis. She'll underwent a left direct anterior total hip arthroplasty. The patient tolerated the procedure well and did well postoperatively. She has some pain in her left hip that states her pain has been actively controlled. She has been able to intubate with assistance of a walker without significant difficulty. She is eating and voiding without difficulty. Her dressing remains clean, dry, and intact. She feels she is ready for discharge today. Condition on day of discharge stable. Patient will be discharged home. Patient was cleared preoperatively for surgery by Dr. Mart. She has a walker. She may weight-bear as tolerated on the left lower extremity with the assistance of a walker. Patient should keep the dressing intact over the left hip until her follow-up appointment. She may shower with her dressing intact over the left hip. She will follow up in the office with Dr. Willson at [facility] in 2 weeks for further evaluation. Patient currently denies any nausea, vomiting, fever, or chills. MAPS has been reviewed. An "Opiod Start Talking" Form has been signed and placed in the patient's chart. A prescription has been written for [place] 5 mg/325 mg 1-2 tabs every 6 hours as needed for pain, dispensed #40. Patient should take her new prescriptions as prescribed including Colace 100 mg, opening sodium, aspirin 81 mg, and omeprazole. Patient may resume her other previous he prescribed home medications. Patient's other medical diagnoses include hypertension, hyperlipidemia, hypothyroidism, and obesity. Physical Exam on day of discharge: Status post surgical day number 1 Patient is examined sitting bedside upright in a chair Patient is awake and alert, and oriented 3 Vital signs stable Good chest excursion with deep inspiration and expiration No signs or symptoms of DVT; no calf pain Lower extremity cuffs in place bilaterally Dressing of the left hip is clean, dry, and intact; no erythema, purulence, or signs of infection Mild pain with palpation around the surgical site at the left hip Full range of motion of ankles bilaterally Neurovascularly intact bilateral lower extremities Procedures: Left direct anterior total hip arthroplasty Patient Condition at Discharge: Stable Plan - Discharge Summary Discharge Rx Participant: Yes New Discharge Prescriptions: New Docusate [Colace] 100 mg PO BID 30 Days #60 cap Diclofenac Sodium [Voltaren] 75 mg PO BID 30 Days #60 tab HYDROcodone/APAP 5-325MG [[place] 5-325] 1 - 2 tab PO Q6HR PRN 40 Days #7 tab PRN Reason: Pain Aspirin 81 mg PO BID 30 Days #60 tab Docusate [Colace] 100 mg PO BID #60 capsule Omeprazole 40 mg PO DAILY 30 Days #30 cap No Action ALPRAZolam [Xanax] 0.25 mg PO BID Cetirizine HCl [Zyrtec] 10 mg PO DAILY Ergocalciferol (Vitamin D2) [Vitamin D2] 50,000 unit PO SA Lisinopril-Hctz 20-25 mg [Zestoretic 20-25] 1 tab PO DAILY Metoprolol Tartrate [Lopressor] 25 mg PO BID Vit C/E/Zn/Coppr/Lutein/Zeaxan [Preservision Areds 2 Softgel] 1 each PO DAILY Acetaminophen [Tylenol Extra Strength] 500 mg PO Q6H PRN PRN Reason: Pain Levothyroxine Sodium [Synthroid] 100 mcg PO DAILY Rosuvastatin [Crestor] 10 mg PO HS Discharge Medication List ALPRAZolam [Xanax] 0.25 mg PO BID 10/20/16 [History] Cetirizine HCl [Zyrtec] 10 mg PO DAILY 10/20/16 [History] Ergocalciferol (Vitamin D2) [Vitamin D2] 50,000 unit PO SA 10/20/16 [History] Lisinopril-Hctz 20-25 mg [Zestoretic 20-25] 1 tab PO DAILY 10/20/16 [History] Metoprolol Tartrate [Lopressor] 25 mg PO BID 10/20/16 [History] Levothyroxine Sodium [Synthroid] 100 mcg PO DAILY 07/25/21 [History] Acetaminophen [Tylenol Extra Strength] 500 mg PO Q6H PRN 11/19/21 [History] Rosuvastatin [Crestor] 10 mg PO HS 11/19/21 [History] Vit C/E/Zn/Coppr/Lutein/Zeaxan [Preservision Areds 2 Softgel] 1 each PO DAILY 11/19/21 [History] Aspirin 81 mg PO BID 30 Days #60 tab 11/21/21 [Rx] Diclofenac Sodium [Voltaren] 75 mg PO BID 30 Days #60 tab 11/21/21 [Rx] Docusate [Colace] 100 mg PO BID #60 capsule 11/21/21 [Rx] Docusate [Colace] 100 mg PO BID 30 Days #60 cap 11/21/21 [Rx] HYDROcodone/APAP 5-325MG [[place] 5-325] 1 - 2 tab PO Q6HR PRN 40 Days #7 tab 11/21/21 [Rx] Omeprazole 40 mg PO DAILY 30 Days #30 cap 11/21/21 [Rx] Follow up Appointment(s)/Referral(s): Mark Anthony Willson MD [Medical Doctor] - 2 Weeks Activity/Diet/Wound Care/Special Instructions: Weight bear as tolerated on operative leg with a walker. Keep operative dressing intact until follow-up appointment. Take pain medications as prescribed. Take aspirin 81mg BID x 4 weeks for blood clot prevention. Follow-up in the office in two weeks with Dr. Willson. Call the office with any questions or concerns, Discharge Disposition: HOME WITH HOME HEALTH SERVICES
== END 2021-11-22 12:07 | disposition home health service (06) ==
LOC: OR 09:16 → 4SSUR 13:39 → OR 11-22 12:07
PROVIDERS: ATTEND Orthopaedic Surgery
DX: M87.852 Other osteonecrosis, left femur (principal); I10 Essential (primary) hypertension; E78.5 Hyperlipidemia, unspecified; E03.9 Hypothyroidism, unspecified; E66.9 Obesity, unspecified; Z68.34 Body mass index [BMI] 34.0-34.9, adult
CPT/HCPCS: 27130; 97110; 97162; 86900; 86901; 88305; 80053; 85025; 86850; 88311; 73501; C1776; J2250; J1100; J2710; J0690 ×2; J2405; J2001; J3010; J1885; J2370; J0330; J2704

== ENCOUNTER → 2022-02-25 | Outpatient (CLI) | payer MEDICAID ==
--- NOTE | 2022-02-26 05:37 | MR ---
EXAMINATION TYPE: MR hip RT wo con DATE OF EXAM: 02/25/2022 COMPARISON: None HISTORY: Rt hip pain, popping, pain into back, numbness into rt thigh Multiplanar multi echo imaging of the pelvis and right hip with no contrast. There is metal artifact from left hip prosthesis. Visualized pelvis appears intact. No edema. No pelv ic fracture seen. No free fluid in the pelvis. No sign of a pelvic mass. Bladder distends smoothly. There is some right hip joint space narrowing. There is no significant hip joint effusion. No fractur e line seen. There is hypertrophic acetabular spurring. There is small area of subchondral edema in t he lateral aspect of the femoral head on the T2 images that measures 8 mm and consistent with osteoar thritis. IMPRESSION: There is some mild osteoarthritic narrowing of the right hip joint space. No fracture seen. No eviden ce of avascular necrosis.
== END | disposition home or self-care (01) ==
LOC: RADMRIMAIN 12:19
PROVIDERS: ATTEND Orthopaedic Surgery
DX: M16.11 Unilateral primary osteoarthritis, right hip (principal)

== ENCOUNTER → 2023-06-14 | Outpatient (CLI) | payer OTHER ==
--- NOTE | 2023-06-14 11:14 | XR ---
EXAMINATION TYPE: XR chest 2V DATE OF EXAM: 06/14/2023 COMPARISON: NONE TECHNIQUE: PA and lateral views submitted. HISTORY: cough FINDINGS: The lungs are clear and there is no pneumothorax, pleural effusion, or focal pneumonia. Heart size normal and no overt failure. Osseous structures demonstrate hypertrophic and degenerative changes of the spine. IMPRESSION: 1. No acute process.
== END | disposition home or self-care (01) ==
LOC: RADXRYALE 10:41
PROVIDERS: ATTEND Internal Medicine
DX: R05.1 Acute cough (principal)
CPT/HCPCS: 71046

== ENCOUNTER → 2024-06-22 | Outpatient (CLI) | payer OTHER ==
--- NOTE | 2024-06-22 11:47 | XR ---
EXAMINATION TYPE: XR chest 2V DATE OF EXAM: 06/22/2024 10:24 AM COMPARISON: None CLINICAL INDICATION: Female, 64 years old with history of [id number] PERSISTENT COUGH,DEVIN FOOT PAIN ; [facility] TECHNIQUE: XR chest 2V Frontal and lateral views of the chest. FINDINGS: Lungs/Pleura: There is no evidence of pleural effusion, focal consolidation, or pneumothorax. Pulmonary vascularity: Unremarkable. Heart/mediastinum: Cardiomediastinal silhouette is unremarkable. Musculoskeletal: No acute osseous pathology. Other findings: None IMPRESSION: No acute cardiopulmonary disease/process. [facility], , 06/22/2024 11:44 AM
--- NOTE | 2024-06-22 11:48 | XR ---
EXAMINATION TYPE: XR foot complete bilateral DATE OF EXAM: 06/22/2024 10:24 AM COMPARISON: None CLINICAL INDICATION: Female, 64 years old with history of [id number] PERSISTENT COUGH,DEVIN FOOT PAIN ; [facility] TECHNIQUE: XR foot complete bilateral examined in the AP, oblique, and lateral projections. FINDINGS: No evidence of any acute osseous pathology. Multifocal degeneration changes throughout the joints of the foot with osteophyte formation and joint space narrowing. Calcaneal plantar spurring is present. IMPRESSION: No evidence of acute fracture. Multifocal degeneration changes throughout the joints of the foot. [facility], , 06/22/2024 11:46 AM
== END | disposition home or self-care (01) ==
LOC: RADXRYALE 09:58
PROVIDERS: ATTEND Internal Medicine
DX: J45.40 Moderate persistent asthma, uncomplicated (principal); M19.071 Primary osteoarthritis, right ankle and foot; M19.072 Primary osteoarthritis, left ankle and foot
CPT/HCPCS: 71046